=== PATIENT | female | born 1990 | race Caucasian/White ===

== ENCOUNTER 2019-11-18 13:29 | Outpatient (CLI) | payer OTHER ==
--- NOTE | 2019-11-18 14:19 | MMO ---
Bilateral MAMMO Bilat Diag [facility]. CLINICAL HISTORY: Patient is 29 years old and is seen for diagnostic exam,lump or thickening in the left breast in the sub-areolar region and in the axilla region and pain in the sub-areolar region of the left breast. The patient has no family history of breast cancer. The patient has no personal history of cancer. VIEWS: The views performed were: bilateral craniocaudal with tomosynthesis; bilateral mediolateral oblique with tomosynthesis; bilateral mediolateral with tomosynthesis; and right craniocaudal spot compression with tomosynthesis. FILMS COMPARED: The present examination has been compared to prior imaging studies performed at [facility] on 08/21/2017, and at [facility] on 11/18/2019. This study has been interpreted with the assistance of computer-aided detection. MAMMOGRAM FINDINGS: There are scattered fibroglandular densities. There are no suspicious masses, suspicious calcifications, or new areas of architectural distortion. No abnormality noted in the left retroareolar region or left axilla. Negative imaging should not delay biopsy of a clinically suspicious finding. IMPRESSION: THERE IS NO MAMMOGRAPHIC EVIDENCE OF MALIGNANCY. A ROUTINE FOLLOW-UP MAMMOGRAM AT AGE 40 IS RECOMMENDED. THE RESULTS OF THIS EXAM WERE SENT TO THE PATIENT. ACR BI-RADS Category 1 - Negative MAMMOGRAPHY NOTE: 1. A negative mammogram report should not delay a biopsy if a dominant of clinically suspicious mass is present. 2. Approximately 10% to 15% of breast cancers are not detected by mammography. 3. Adenosis and dense breasts may obscure an underlying neoplasm. Reported by: AMBROSE BOWEN MD Electonically Signed: [id number]
--- NOTE | 2019-11-18 14:44 | ULT ---
FOCUSED ULTRASOUND OF THE LEFT BREAST: Date: 11/18/2019 HISTORY: Left axillary palpable abnormality and pain in the left retroareolar region. FINDINGS: Focused ultrasound in the area of patient pain in the left retroareolar region/2 o'clock position is unremarkable, with no discrete mass or abnormal shadowing seen. The patient reported palpable abnormality swollen lymph node within the left axilla. Imaging in thi s region demonstrates no abnormal lymph nodes. Incidental note is made of normal lymph nodes in the l eft axillary region. IMPRESSION: BI-RADS Category 2 - Benign findings. Negative imaging should not delay biopsy of a clinically suspic ious abnormality.
== END 2019-11-18 13:30 | disposition home or self-care (01) ==
LOC: BICMAMMO 13:29
PROVIDERS: ATTEND Obstetrics & Gynecology
DX: N64.4 Mastodynia (principal)
CPT/HCPCS: 77066; G0279